=== PATIENT | female | born 1965 | race African-American/Black ===

== ENCOUNTER 2016-10-12 19:03 | Inpatient (IN) | payer OTHER ==
--- NOTE | ~2016-10-12 | DS ---
Discharge Summary [facility] [address] [place]. [address] NAME: DWAYNE NEGRON : 67 STATUS : DIS Judie PAT#: [id number] AGE: 51 ADM/REG DATE : 10/12/16 MR#: [id number] REPORT SERV DATE: 10/16/16 DICTATED BY: JR. RANDLE WILLIAM JOHN DATE: 10/15/16 REPORT STATUS : Draft TRANSCRIBED BY: MODCherie DATE: 10/15/16 ADMISSION DATE: 10/12/2016 DISCHARGE DATE: 10/15/2016 DISCHARGE DIAGNOSES: 1. Syncope and collapse. 2. Atypical chest pain with a negative cardiac workup. 3. Low cortisol, on a random sample. Followup sample was normal. 4. Mood disorder. 5. Anxiety. 6. Posttraumatic stress disorder. 7. Orthostatic hypotension without symptoms. OPERATIONS, PROCEDURES, AND TREATMENTS: Include: 1. CT angiogram of the chest done 10/12/2016, which showed no CTA evidence of pulmonary embolism. No active pulmonary disease. There is a subcentimeter cyst in the right lobe of the liver. 2. CT of the brain without contrast done 10/13/2016 was unremarkable. 3. MRI of the brain done 10/13/2016, which was normal. 4. MRA of the neck done 10/13/2016 showed brachiocephalic demonstrate no significant luminal stenosis by NASCET criteria. The carotids would be category N, normal, vertebral subclavian is also normal. 5. CT of the head done 10/13/2016 was normal. 6. Myocardial perfusion scan could not be completed due to the patient apparently falling during the test. 7. Echocardiogram done 10/14/2016 showed normal left ventricular systolic function with ejection fraction of 55% to 60% with mild left ventricular hypertrophy. Normal right ventricular chamber size and systolic function. No significant valvular regurgitation. 8. Cardiac PET scan done 10/14/2016 showed no ischemia with a resting ejection fraction of 61%. DISCHARGE MEDICATIONS: Include: 1. Aspirin 325 mg orally daily. 2. Vitamin D3 of 2000 units daily. 3. Neurontin 100 mg at the hour of sleep for six days. 4. Klonopin 0.5 mg at bedtime. 5. Neurontin 200 mg orally twice a day. 6. Cetirizine 10 mg orally daily. 7. Seroquel 75 mg orally daily. 8. Trazodone 50 mg orally daily. 9. Fluoxetine 60 mg daily. 10.Klonopin 0.25 mg every morning. 11.Hyzaar 100/25, one tablet orally daily. 12.Maxalt 5 mg sublingually as needed for migraines. 13.Tessalon 200 mg three times a day as needed. Discharge Summary [facility] [address] [place]. [address] NAME: DWAYNE NEGRON : 67 STATUS : DIS Judie PAT#: [id number] AGE: 51 ADM/REG DATE : 10/12/16 MR#: [id number] REPORT SERV DATE: 10/16/16 DICTATED BY: JR. RANDLE WILLIAM JOHN DATE: 10/15/16 REPORT STATUS : Draft TRANSCRIBED BY: ЕКАТЕРИНА DATE: 10/15/16 HOSPITAL COURSE: The patient was a 51-year-old female, who was directly admitted from Dr. Faria's office to the Cardiac Service. The patient presented with chest pain. She has undergone several cardiac evaluations with low risk vasodilator tests and CPOU evaluation on 01/21/2015, a low risk stress test in 06/2013 with SVT episode during a 2002 stress test with no ischemia and essentially normal echocardiogram. In the interim since 01/2015, she underwent an evaluation for [facility] in [place], [place], and a vasodilator stress test showed no ischemia. She also had an upper GI in 2013 which was reportedly negative while she was stationed in [place]. There has never been a reason identified for the sharp chest pain. She denies any palpitations. The patient retired from the in 06/2016, has been having panic attacks, anxiety, and "PTSD" having difficulty re-integrating to civilian society. She does not have any suicidal ideation. Reports she is closely followed by her psychiatrist at the [facility]. She presented to emergency department yesterday from the [facility] because of chest pain, worse with deep inspiration. No other complaints. For exact details of the patient's history, physical, and presenting data, please see Dr. Blackburn's excellent dictated history and physical. The patient was admitted to the Chest Pain Observation Unit. She was ruled out for myocardial infarction with serial cardiac enzymes and monitored on telemetry. She underwent an echocardiogram which is detailed above. The patient was to have a nuclear stress test. Unfortunately, fell and was unable to complete the stress test. The patient then underwent a CT/PET scan. She had some sort of an episode afterwards where as soon as the test was completed she ran into the corner of the room with a somewhat dramatic presentation. Fortunately, the test was completed and was normal. The patient was seen in consultation by Psychiatry, Dr. Nunez, who felt she had a mood disorder, not otherwise specified. [place] she was not a harm to herself or anyone else and recommended outpatient followup with Psychiatry through the [facility]. Finally, the patient was also seen by Neurology and underwent an MRI of the brain, MRA of the neck and head, and will get an EEG. Thus far, the workup is negative. The patient was found to have a low cortisol level. Therefore, the Hospitalist Service was consulted and assumed care. Followup random cortisol was normal as was cosyntropin stimulation test. The patient will have an EEG today. If this is normal and if okay with neurology, will discharge patient home today 10/15/2016 for outpatient followup with the [facility] for psychiatric care as well as primary care. DISCHARGE DIET: Regular. ACTIVITY: As tolerated. The patient should not drive, climb ladders, swim, etc, for at least six months. For discharge exam and laboratory, please see the daily progress note. Discharge Summary [address] [address] NAME: DWAYNE NEGRON : 67 STATUS : DIS Judie PAT#: [id number] AGE: 51 ADM/REG DATE : 10/12/16 MR#: [id number] REPORT SERV DATE: 10/16/16 DICTATED BY: JR. RANDLE WILLIAM JOHN DATE: 10/15/16 REPORT STATUS : Draft TRANSCRIBED BY: ЕКАТЕРИНА DATE: 10/15/16 This discharge took 38 minutes for patient encounter, coordination of care, and documentation. WJF/ЕКАТЕРИНА Harlan Randle Jr, MD / [id number] CC: Harlan Randle Jr, MD Tina Fox
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
--- NOTE | ~2016-10-12 | EEG ---
Electroencephalogram [facility] [id number] [place]. [address] NAME: DWAYNE NEGRON : 67 STATUS : DIS Judie PAT#: [id number] AGE: 51 ADM/REG DATE : 10/12/16 MR#: [id number] REPORT SERV DATE: 10/15/16 DICTATED BY: REBECCA SLOAN DATE: 10/15/16 REPORT STATUS : Draft TRANSCRIBED BY: MODL DATE: 10/15/16 EEG NUMBER: [id number]. ORDERING PHYSICIAN: Clare Flores [facility]. INTERPRETING PHYSICIAN: Rebecca Sloan MD. REASON FOR EEG: Syncopal episode, rule out seizures. MEDICATIONS: Included Klonopin, which the patient received prior to the EEG. DESCRIPTION: 10-20 international placement was used. The patient was noted to be awake, drowsy, and asleep throughout the study. The background activity consisted of moderate to lower voltage 9-10 cycles per second located in the posterior head regions. Photic stimulation was performed. No significant abnormalities were noted during the photic stimulation. The patient was noted to become drowsy and light stages of sleep were recorded. Moderate amount of spindling activity was seen, which most likely represents a medication effect. No significant asymmetry of cerebral activity was present. Prominent EKG artifact was noted in the referential leads. The patient's bus driver/monitor showed sinus rhythm, rate of approximately 62 beats per minute. No paroxysmal epileptiform activity was detected during this study. IMPRESSION: THIS EEG IS WITHIN NORMAL RANGE FOR AN AWAKE, DROWSY, AND SLEEP STATES. CLINICAL CORRELATION IS RECOMMENDED. JOSIAS/ЕКАТЕРИНА Rebecca Sloan MD / [id number] CC: Harlan Randle Jr, BETSY HERRON
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
--- NOTE | ~2016-10-12 | HP ---
History And Physical [place] [id number] [place] [place]. [address] NAME: DWAYNE NEGRON : 67 STATUS : ADM Judie PAT#: [id number] AGE: 51 ADM/REG DATE : 10/12/16 MR#: [id number] REPORT SERV DATE: 10/13/16 DICTATED BY: LIVE SHABAZZ DATE: 10/13/16 REPORT STATUS : Draft TRANSCRIBED BY: MODL DATE: 10/13/16 DATE OF ADMISSION: 10/12/2016 Primary care provider is Dr. Motley at [facility] with the patient reporting plan to go through the [employer] program to establish a new PCP at some point. HAND ETCHER: Unnamed provider at [facility] in [place], [place]. Previously Dr. Delaney at [facility] in [facility]. PSYCHIATRIST: Dr. Stewart through the [facility]. CHIEF COMPLAINT: Chest pain. HISTORY OF PRESENT ILLNESS: This is a 51-year-old somewhat anxious female with a history of SVT, hypertension and with no history of coronary artery disease. She has undergone several cardiac evaluations with low risk vasodilator stress test and CPOU evaluation 01/21/2015 and a low risk stress test 06/2013 with an SVT episode during the 2002 stress test but with no ischemia and with essentially normal echocardiogram. The patient reports since last CPOU evaluation for chest pain 01/21/2015, she did have an evaluation at [facility] in [place], [place]. She reports August 2015, she underwent a vasodilator stress test there that revealed no ischemia. She reports that she has also undergone evaluation for this atypical chest pain with an upper GI in 2013 which was reportedly negative when she was in [place]. She says that they have never been able to determine the etiology of her sharp chest pains. She denies any palpitations. 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 She does not have any suicidal ideation and reports that she is closely followed by her psychiatrist at the [place], Dr. Stewart. She presented to the emergency department yesterday from the [place] per her report. [facility] because she was having sharp chest pains that were worse with deep inspiration. Again no other complaints. She reports her blood pressure was elevated but that it is normally better controlled. She denies any recent syncope or near syncope. Again no palpitations. No recent illness. The patient reports she was given morphine earlier this morning for sharp chest pain and that she is currently pain- free at this time. She reports that the chest pain comes and goes abruptly and is worse with stress. Again no associated symptoms. PAST MEDICAL HISTORY: 1. SVT on a nuclear stress test in 2012. She also reports that she had SVT on the monitor that she wore for approximately three weeks and she reported this in 2014. No further documented SVT with patient denying palpitations. 2. Hypertension. 3. Remote 2 syncopal episodes prior to previous CPOU evaluation in 2014. This has been evaluated previously and with an echocardiogram that was essentially normal 07/17/2015. 4. Depression. 5. Kidney stones. History And Physical [address] [address] NAME: DWAYNE NEGRON : 67 STATUS : ADM Judie PAT#: [id number] AGE: 51 ADM/REG DATE : 10/12/16 MR#: [id number] REPORT SERV DATE: 10/13/16 DICTATED BY: LIVE SHABAZZ DATE: 10/13/16 REPORT STATUS : Draft TRANSCRIBED BY: ЕКАТЕРИНА DATE: 10/13/16 6. Plantar fasciitis. 7. Bursitis in ear and neck. 8. The patient reports severe posttraumatic stress disorder. 9. Panic attacks and anxiety for which she is seeing a psychiatrist. 10.Chest pain. The patient has undergone 3 stress tests per her report since 2012 and underwent an upper GI that was reportedly negative in 2013 in [place]. PAST SURGICAL HISTORY: 1. Tubal ligation. 2. Partial hysterectomy in 2000. 3. Keloid removal from ear and neck in 1988. SOCIAL HISTORY: . Retired from the in June and moved to [place] 06/26/2016. She denies any tobacco, alcohol, or illicit drug use. She reports difficulty transitioning to a civilian life with reported panic attacks, anxiety, and severe posttraumatic stress disorder for which [facility] [place] [facility]. FAMILY HISTORY: Mother with myocardial infarction in her 50s, in her 70s. REVIEW OF SYSTEMS: As above per HPI, all other systems reviewed and negative. ALLERGIES: YUNIOR INHIBITORS; REACTION, CHRONIC COUGH. MEDICATIONS: Home medication list reviewed and is as follows: 1. Norvasc 10 mg p.o. at bedtime. 2. Hyzaar 100/25 mg one tablet p.o. every morning. 3. Metoprolol tartrate 100 mg p.o. twice per day. 4. Maxalt benzoate 5 mg ewod-vab-nyzhmop tablet sublingual p.r.n. migraines. 5. Tessalon Perles 200 mg p.o. three times per day as needed for cough. 6. Zyrtec 10 mg p.o. at bedtime. 7. Vitamin D3 2000 units p.o. daily. 8. Klonopin 0.25 mg p.o. every morning. 9. Klonopin 0.5 mg p.o. at bedtime. 10.Prozac 60 mg p.o. every morning. 11.Gabapentin 100 mg p.o. at bedtime x6 days, started 10/10/2016 by the [place]. 12.Neurontin 200 mg p.o. twice per day. The patient was due to start this after completing 100 mg 6-day therapy. 13.Seroquel 75 mg p.o. at bedtime. 14.Desyrel 50 mg p.o. at bedtime. PHYSICAL EXAMINATION: VITAL SIGNS: Oxygen saturation 99% on room air. Weight 81.64 kg. Temperature 98.1, pulse 63, respiratory rate 18, and blood pressure 153/78. GENERAL: Well developed, well nourished. Somewhat flat affect with anxiety at times, in no apparent distress otherwise. History And Physical [address] [address] NAME: DWAYNE NEGRON : 67 STATUS : ADM Judie PAT#: [id number] AGE: 51 ADM/REG DATE : 10/12/16 MR#: [id number] REPORT SERV DATE: 10/13/16 DICTATED BY: LIVE SHABAZZ DATE: 10/13/16 REPORT STATUS : Draft TRANSCRIBED BY: ЕКАТЕРИНА DATE: 10/13/16 HEENT: Anicteric. Normal EOM. Head normocephalic. PERRLA, no xanthelasma. NECK: Supple. No JVD. Carotids normal without bruits. LUNGS: Clear to auscultation bilaterally anterior and posterior. Respirations even and unlabored. CARDIAC: S1, S2 regular rate and rhythm. No murmurs, rubs, or gallops. No chest wall tenderness. ABDOMEN: Normal bowel sounds. Soft and nontender to palpation. No masses or organomegaly. EXTREMITIES: No peripheral edema. DP/PT and radial pulses palpable bilaterally. No clubbing or cyanosis. SKIN: Warm and dry. Normal turgor. No pallor or cyanosis. MUSCULOSKELETAL: Moving all extremities x4. Normal muscle strength. NEURO/PSYCH: Alert and oriented with appropriate affect. LABORATORY DATA: 1. BMP: Sodium 140, potassium was 3.3, and it has been repleted per nursing staff. Creatinine 0.61. Glucose 97. Calcium 8.3. 2. Magnesium 2. 3. CBC: White blood cell count 6.9, hemoglobin 12, hematocrit 35.4, and platelets 326. 4. Troponin less than 0.02 x3. 5. BNP 28.2. 6. CTA of the chest performed in the emergency department revealed no CTA evidence of pulmonary emboli. No active pulmonary disease. A stable small 7 mm cyst right lobe of the liver. Mild fusiform aneurysmal change of the ascending thoracic aorta measuring 3.5 cm diameter which is stable per Dr. Varela's measurement from prior examination. 7. EKGs personally interpreted x2, one including with 7/10 chest pain. Normal sinus rhythm with no ischemia. Please note, there is no change from prior EKGs in the system from 01/22/2015 and 01/20/2015 with possible minimal voltage criteria for LVH with Q- wave in lead V1 and V2. No acute ischemia. 8. Telemetry normal sinus rhythm, no events. 9. Head CT without contrast: Negative noncontrast CT examination of the brain and this was performed 10/13/2016 post reported fall. This was done at 1346 hours. ASSESSMENT AND PLAN: 1. Chest pain. This has atypical features with a sharp chest pain. The patient reports that she has had chest pain for a number of years. She has undergone previously multiple evaluations that were benign with reported three negative stress tests including two that I have personally reviewed and an essentially normal echocardiogram 2014. EKGs were benign with no acute ischemia and no change from prior EKGs in 2014. Three negative troponins despite atypical sharp and severe chest pain. CTA of the chest was performed in the emergency department for ongoing chest pain and revealed no pulmonary emboli and no acute processes. There was a stable mild fusiform aneurysmal change of 3.5 cm of the thoracic aorta and again this was stable from prior examination. There was also a stable small cyst of the right lobe liver; both of these should be followed by the [place] primary care. Given chest pain and cardiac risk factors of high blood pressure and family history of myocardial infarction, I ordered a stress test. Per discussion with Dr. Blackburn down in the stress testing area, the patient was doing well on the treadmill and it revealed no ischemia. She stopped talking to [facility] History And Physical [address] [place]. [address] NAME: DWAYNE NEGRON : 67 STATUS : ADM Judie PAT#: [id number] AGE: 51 ADM/REG DATE : 10/12/16 MR#: [id number] REPORT SERV DATE: 10/13/16 DICTATED BY: LIVE SHABAZZ DATE: 10/13/16 REPORT STATUS : Draft TRANSCRIBED BY: ЕКАТЕРИНА DATE: 10/13/16 in the room with her and then fell. She did not hit her head per [facility]'s report to Dr. Blackburn. I have an abundance of caution. Head CT was ordered. This was benign. Neurology stat consult was obtained. RN performed bedside neurologic exam which was normal. We will also consult Psychiatry for this episode. If all their evaluation is stable and she continues to have chest pain, then we would consider a vasodilator stress test tomorrow. We will put her on fall precautions. She will require a followup with her primary care provider. Await further recommendations from Neurology and Psychiatry. 2. Hypertension. We will provide hydralazine for elevated blood pressure and continue home medications. 3. History of SVT. There was no recurrence here. 4. Reported severe PTSD. The patient reports she is not doing well with this. She has a psychiatrist at the [place], Dr. Stewart but we will also consult a psychiatrist here in the hospital at this time. 5. Panic attacks and anxiety disorder. Again we will consult psychiatrist here. She denies any suicidal ideation and she will require followup with the psychiatrist at the [place]. 6. Further recommendations are pending her course. FOREST/ЕКАТЕРИНА Live Shabazz NP / [id number] CC: Naomi Turner, MSN, INSURANCE SALES AGENT-BC [facility]
[~2016-10-12 19:03] MED LIST: CARD30 PO; COZAAR100 MG PO; HYZAAR 100/25 T1 TAB PO; KLONO5 PO; PROZAC PO; REST15 PO; T PO; TOPXL50 OR; TRAZ50 PO; WELLXL150 PO
[2016-10-12 21:09] LABS: BASOPHILS 0.4 %; BASOPHILS ABSOLUTE 0.03 10/3/uL (0.0-0.16); EOSINOPHILS 4.6 %; EOSINOPHILS ABSOLUTE 0.32 10/3/uL (0.0-0.53); ER CBC TAT 0 Hrs 03 Mins; HEMATOCRIT 35.4 % (36.0-48.0); IMMATURE GRANULOCYTES 0.3 %; IMMATURE GRANULOCYTES ABSOLUTE 0.02 10/3/uL (0.0-0.11); LYMPHOCYTES 43.2 %; MEAN CORPUS HGB CONC 33.9 g/dL (32.0-36.0); MEAN CORPUSCULAR HEMOGLOB 28.6 pg (26.0-34.0); MEAN CORPUSCULAR VOLUME 84.5 fL (80-100); MEAN PLATELET VOLUME 9.4 fL (9.2-13.0); MONOCYTES 9.9 %; MONOCYTES ABSOLUTE 0.69 10/3/uL (0.21-1.20); NEUTROPHILS 41.6 %; NEUTROPHILS ABSOLUTE 2.88 10/3/uL (2.02-8.40); PLATELET COUNT 326 10/3/uL (150-400); RBC DISTRIBUTION WIDTH 14.9 % (12.0-16.0); RED CELL COUNT 4.19 10/6/uL (4.0-5.6); WHITE BLOOD CELLS 6.9 10/3/uL (4.5-10.5)
[2016-10-12 21:10] LABS: MANUAL DIFF NO %
[2016-10-12 21:16] LABS: INTERNATIONAL NORMAL RATI 1.1 UNITS (-); PROTIME (NOT ORD) 14.3 SEC (12.0-14.5)
[2016-10-12 21:17] LABS: PARTIAL THROMBO TIME 30.6 SEC (22.5-37.2)
[2016-10-12 21:19] LABS: D-DIMER QUANTITATIVE 0.93 ug/mLFEU (< 0.50)
[2016-10-12 21:26] LABS: CALCIUM, SERUM 8.3 MG/DL (8.5-10.4); CHEST PAIN PROFILE TAT 0 Hrs 20 Mins; CHLORIDE, SERUM 106 MMOL/L (96-112); CO2 (CARBON DIOXIDE) 25 MMOL/L (24-34); CREATININE 0.61 MG/DL (0.55-1.02); GFR AFRICAN AMERICAN 123 ML/MIN (>=60); GFR NON AFRICAN AMERICAN 106 ML/MIN (>=60); GLUCOSE, SERUM 97 MG/DL (60-99); SODIUM, SERUM 140 MMOL/L (135-148); TROPONIN I <0.02 NG/ML (<0.05)
[2016-10-12 21:27] LABS: BUN (BLOOD UREA NITROGEN) 9 MG/DL (6-23); POTASSIUM, SERUM 3.3 MMOL/L (3.5-5.3)
[2016-10-13] MEDS ORDERED: NORV10 PO (01:38)
[2016-10-13] MEDS ORDERED: HYZAAR 100/25 T1 TAB PO (01:39)
[2016-10-13] MEDS ORDERED: LOP100 PO (01:39)
[2016-10-13] MEDS ORDERED: TESSALON200 MG PO (01:40)
[2016-10-13] MEDS ORDERED: MAXALT-MLT5 MG SL (01:40)
[2016-10-13] MEDS ORDERED: ZYRTEC ALLGY10 MG PO (01:40)
[2016-10-13] MEDS ORDERED: VITAMIN D31000 UNIT PO (01:41)
[2016-10-13] MEDS ORDERED: KLONO5 PO ×2 (01:41→01:42)
[2016-10-13] MEDS ORDERED: PROZAC PO (01:42)
[2016-10-13] MEDS ORDERED: NEUR100 PO ×2 (01:43→01:46)
[2016-10-13] MEDS ORDERED: TRAZ50 PO (01:46)
[2016-10-13] MEDS ORDERED: SEROQUEL50 MG PO (01:46)
[2016-10-14 05:35] LABS: BASOPHILS 0.5 %; BASOPHILS ABSOLUTE 0.03 10/3/uL (0.0-0.16); EOSINOPHILS 5.6 %; EOSINOPHILS ABSOLUTE 0.37 10/3/uL (0.0-0.53); IMMATURE GRANULOCYTES 0.2 %; IMMATURE GRANULOCYTES ABSOLUTE 0.01 10/3/uL (0.0-0.11); LYMPHOCYTES 45.7 %; LYMPHOCYTES ABSOLUTE 3.01 10/3/uL (0.67-4.30); MEAN CORPUS HGB CONC 33.2 g/dL (32.0-36.0); MEAN CORPUSCULAR HEMOGLOB 28.1 pg (26.0-34.0); MEAN CORPUSCULAR VOLUME 84.4 fL (80-100); MEAN PLATELET VOLUME 9.4 fL (9.2-13.0); MONOCYTES 10.6 %; NEUTROPHILS 37.4 %; NEUTROPHILS ABSOLUTE 2.47 10/3/uL (2.02-8.40); PLATELET COUNT 368 10/3/uL (150-400); RED CELL COUNT 4.63 10/6/uL (4.0-5.6); WHITE BLOOD CELLS 6.6 10/3/uL (4.5-10.5)
[2016-10-14 05:38] LABS: HEMATOCRIT 39.1 % (36.0-48.0); MANUAL DIFF NO %
[2016-10-14 06:11] LABS: ALBUMIN 3.3 G/DL (3.5-5.0); ALKALINE PHOSPHATASE 93 U/L (45-117); CALCIUM, SERUM 8.6 MG/DL (8.5-10.4); CHLORIDE, SERUM 106 MMOL/L (96-112); CHOL/HDL RATIO(NOT ORDER) 4.2 (0-5); CHOLESTEROL 202 MG/DL (< 200); CO2 (CARBON DIOXIDE) 24 MMOL/L (24-34); GFR AFRICAN AMERICAN 86 ML/MIN (>=60); GFR NON AFRICAN AMERICAN 75 ML/MIN (>=60); GLUCOSE, SERUM 99 MG/DL (60-99); HDL CHOLESTEROL 48 MG/DL (> 49); LDL CHOLESTEROL 123 MG/DL (< 130); NON-HDL CHOLESTEROL 154 MG/DL (< 160); POTASSIUM, SERUM 3.5 MMOL/L (3.5-5.3); SGOT(AST) 13 U/L (5-40); SGPT(ALT) 30 U/L (5-65); SODIUM, SERUM 138 MMOL/L (135-148); TOTAL BILIRUBIN 0.3 MG/DL (0-1.2); TOTAL PROTEIN 7.1 G/DL (6.0-8.5); TRIGLYCERIDE 158 MG/DL (< 150); ULTRASENSITIVE TSH 0.652 MCIU/ML (0.358-3.740)
[2016-10-14 06:15] LABS: BUN (BLOOD UREA NITROGEN) 15 MG/DL (6-23); CPK 149 U/L (0-200); DIRECT BILIRUBIN < 0.1 MG/DL (0.0-0.4); FOLATE 13.1 NG/ML (>5.2); INDIRECT BILIRUBIN(NOT ORDER) 0.2 MG/DL (0.1-0.9)
[2016-10-14 07:34] LABS: GLYCOHEMOGLOBIN (HbA1c) 5.2 % (4.7-6.1)
[2016-10-15] MEDS ORDERED: ASA5GR PO (16:21)
== END 2016-10-15 17:37 | disposition home or self-care (01) | DRG 312 ==
LOC: ER 19:03 → CDU1 23:59 → ER/OF 10-13 02:23 → CDU1 10-13 02:28
PROVIDERS: Emergency Medicine; Nurse Practitioner; Nurse Practitioner Family
DX: R55 Syncope and collapse (principal); I71.2 Thoracic aortic aneurysm, without rupture; R07.89 Other chest pain; I95.1 Orthostatic hypotension; F43.10 Post-traumatic stress disorder, unspecified; I10 Essential (primary) hypertension; F39 Unspecified mood [affective] disorder; F41.0 Panic disorder [episodic paroxysmal anxiety]; F32.9 Major depressive disorder, single episode, unspecified; F41.1 Generalized anxiety disorder; Z79.82 Long term (current) use of aspirin; Z79.899 Other long term (current) drug therapy; Z87.442 Personal history of urinary calculi; Z88.8 Allergy status to other drugs, medicaments and biological substances
CPT/HCPCS: 70450; 70544; 70548; 70551; 71275; 78452; 78492; 80048; 80061; 80076; 82140; 82306; 82533; 82550; 82607; 82746; 83036; 83735; 83880; 84439; 84443; 84484; 85025; 85379; 85610; 85730; 93005; 93017; 93306; 95819; 96374; 96376; 99285; A9270-GY; A9502; A9555; A9577; J0360; J0834; J1170; J2785; Q9967